=== PATIENT | male | born 1980 | race Caucasian/White ===

== ENCOUNTER 2016-09-19 10:01 | Emergency (ER) | payer SELFPAY ==
[~2016-09-19] VITALS: Ht 160 cm; Wt 82.0 kg
[2016-09-19 10:09] VITALS: BP 135/80
== END 2016-09-19 12:12 | disposition home or self-care (01) ==
LOC: ER 11:44
DX: B34.9 Viral infection, unspecified (principal); R53.1 Weakness; I10 Essential (primary) hypertension; R73.9 Hyperglycemia, unspecified
CPT/HCPCS: 82962; 87804; 99284